=== PATIENT | female | born 1985 | race Caucasian/White ===

== ENCOUNTER 2019-04-23 10:45 | Emergency (ER) | payer OTHER ==
[~2019-04-23] VITALS: Ht 177.8 cm; Wt 86.2 kg
[2019-04-23] MEDS ORDERED: RISP0.5T3 PO (11:04)
[2019-04-23] MEDS ORDERED: VENL150C PO (11:04)
[2019-04-23] MEDS ORDERED: CHOL500016 PO (11:04)
[2019-04-23] MEDS ORDERED: BUSP10TA PO (11:04)
[2019-04-23] MEDS ORDERED: VENL75CA PO (11:04)
[2019-04-23] MEDS ORDERED: PROP40TA PO (11:04)
[2019-04-23] MEDS ORDERED: TOPI25TA52 PO (11:04)
[2019-04-23] MEDS ORDERED: GABA300C18 PO (11:04)
--- NOTE | 2019-04-23 11:05 | PHYS DOC ---
Past Medical History Past Medical History: Anxiety, Depression, Migraines, Seizure, Other Additional Past Medical Histor: fainting, ovarian cyst Past Surgical History: Additional Information: 1 ppd Alcohol Use: None Drug Use: Marijuana Adult General Chief Complaint Chief Complaint: SYNCOPE HPI HPI Patient is a 33 year old female with a history of syncope presents to ED complaining of syncopal episode at work today just prior to arrival. Patient states that she was at work doing labor-intensive job at [employer] and states that she had an episode where she passed out and the ladder fell on her. Complains of pain to left hip and neck. Patient is currently in a c-collar. States she's had previous episodes of syncope in the past. Was thought to be medication related symptom. Patient has a history of seizures and anxiety. States she did not have a seizure today. Denies chest pain, shortness of breath, dizziness, weakness, nausea/vomiting, abdominal pain, diarrhea, dizziness, symptoms prior to fall or use of blood thinners. Review of Systems Review of Systems Constitutional: Denies fever or chills [] Eyes: Denies change in visual acuity, redness, or eye pain [] HENT: Denies nasal congestion or sore throat [] Respiratory: Denies cough or shortness of breath [] Cardiovascular: No additional information not addressed in HPI [] GI: Denies abdominal pain, nausea, vomiting, bloody stools or diarrhea [] : Denies dysuria or hematuria [] Musculoskeletal: Complains of hip and neck pain. Denies back pain. [] Integument: Denies rash or skin lesions [] Neurologic: Denies headache, focal weakness or sensory changes [] All other systems were reviewed and found to be within normal limits, except as documented in this note. Allergies Allergies Allergies Coded Allergies Type Severity Reaction Last Updated Verified morphine Allergy Severe throat swelling, hives 04/23/19 Yes brexpiprazole Adverse Reaction Severe seizures 04/23/19 Yes bupropion Adverse Reaction Severe SI 04/23/19 Yes Uncoded Allergies Type Severity Reaction Last Updated Verified wasp venom Allergy Severe throat swelling 04/23/19 Physical Exam Physical Exam Constitutional: Well developed, well nourished, no acute distress, non-toxic appearance. [] HENT: Normocephalic, atraumatic, bilateral external ears normal, oropharynx moist, no oral exudates, nose normal. [] Eyes: PERRLA, EOMI, conjunctiva normal, no discharge. [] Neck: C-collar in place. supple, no stridor. [] Cardiovascular:Heart rate regular rhythm, no murmur [] Lungs & Thorax: Bilateral breath sounds clear to auscultation [] Abdomen: Bowel sounds normal, soft, no tenderness, no masses, no pulsatile masses. [] Skin: Warm, dry, no erythema, no rash. [] Back: No tenderness, no CVA tenderness. [] Extremities: mild left lateral hip tenderness, no cyanosis, no clubbing, ROM intact, no edema. [] Neurologic: Alert and oriented X 3, normal motor function, normal sensory function, no focal deficits noted. [] Psychologic: Affect normal, judgement normal, mood normal. [] Current Patient Data Vital Signs Vital Signs Date Time Temp Pulse Resp B/P (MAP) Pulse Ox O2 Delivery O2 Flow Rate FiO2 04/23/19 12:46 57 18 119/66 (83) 99 Room Air 04/23/19 10:52 98.6 98.6 Lab Values Laboratory Tests Test 04/23/19 12:05 04/23/19 12:10 04/23/19 12:14 04/23/19 12:55 Urine Collection Type Unknown Urine Color Yellow Urine Clarity Clear Urine pH 6.0 Urine Specific [place] 1.010 Urine Protein Negative mg/dL (NEG-TRACE) Urine Glucose (UA) Negative mg/dL (NEG) Urine Ketones (Stick) Negative mg/dL (NEG) Urine Blood Negative (NEG) Urine Nitrite Negative (NEG) Urine Bilirubin Negative (NEG) Urine Urobilinogen Dipstick 0.2 mg/dL (0.2 mg/dL) Urine Leukocyte Esterase Negative (NEG) Urine RBC 0 /HPF (0-2) Urine WBC 1-4 /HPF (0-4) Urine Squamous Epithelial Cells Mod /LPF Urine Bacteria Mod /HPF (0-FEW) White Blood Count 8.5 x10^3/uL (4.0-11.0) Red Blood Count 4.16 x10^6/uL (3.50-5.40) Hemoglobin 12.7 g/dL (12.0-15.5) Hematocrit 38.0 % (36.0-47.0) Mean Corpuscular Volume 91 fL (79-100) Mean Corpuscular Hemoglobin 31 pg (25-35) Mean Corpuscular Hemoglobin Concent 33 g/dL (31-37) Red Cell Distribution Width 12.8 % (11.5-14.5) Platelet Count 220 x10^3/uL (140-400) Neutrophils (%) (Auto) 53 % (31-73) Lymphocytes (%) (Auto) 40 % (24-48) Monocytes (%) (Auto) 4 % (0-9) Eosinophils (%) (Auto) 2 % (0-3) Basophils (%) (Auto) 1 % (0-3) Neutrophils # (Auto) 4.5 x10^3/uL (1.8-7.7) Lymphocytes # (Auto) 3.3 x10^3/uL (1.0-4.8) Monocytes # (Auto) 0.4 x10^3/uL (0.0-1.1) Eosinophils # (Auto) 0.2 x10^3/uL (0.0-0.7) Basophils # (Auto) 0.1 x10^3/uL (0.0-0.2) POC Urine HCG, Qualitative Hcg negative (Negative) Sodium Level 144 mmol/L (136-145) Potassium Level 4.2 mmol/L (3.5-5.1) Chloride Level 110 mmol/L (98-107) H Carbon Dioxide Level 25 mmol/L (21-32) Anion Gap 9 (6-14) Blood Urea Nitrogen 8 mg/dL (7-20) Creatinine 0.8 mg/dL (0.6-1.0) Estimated GFR (Cockcroft-Gault) 83.7 BUN/Creatinine Ratio 10 (6-20) Glucose Level 85 mg/dL (70-99) Calcium Level 9.1 mg/dL (8.5-10.1) Total Bilirubin 0.2 mg/dL (0.2-1.0) Aspartate Amino Transferase (AST) 15 U/L (15-37) Alanine Aminotransferase (ALT) 19 U/L (14-59) Alkaline Phosphatase 51 U/L (46-116) Troponin I Quantitative < 0.017 ng/mL (0.000-0.055) Total Protein 6.3 g/dL (6.4-8.2) L Albumin 3.6 g/dL (3.4-5.0) Albumin/Globulin Ratio 1.3 (1.0-1.7) Laboratory Tests 04/23/19 12:10 Laboratory Tests 04/23/19 12:55 EKG EKG [] Radiology/Procedures Radiology/Procedures PROCEDURE: PORTABLE CHEST 1V EXAM: AP View of the chest DATE: 04/23/2019 10:55 AM INDICATION: Syncope COMPARISON: No Prior FINDINGS: The heart is not enlarged. Mediastinal and hilar contours are normal. No focal parenchymal airspace opacity. No pleural effusion or pneumothorax. IMPRESSION: 1. No radiographic evidence for acute cardiopulmonary process.[] PROCEDURE: CT HEAD AND CERVICAL SPINE WO STUDY: 1. CT head without contrast 2. CT cervical spine without contrast INDICATION: Fall. Left-sided neck pain. COMPARISON: 06/02/2018; 06/02/2015 TECHNIQUE: Axial CT imaging through the head and cervical spine without the use of intravenous contrast. Sagittal and coronal reformats were obtained. FINDINGS: CT head: No acute intracranial hemorrhage. No mass effect, midline shift or hydrocephalus. Hargrove-white matter differentiation is maintained. The calvarium is intact. Right maxillary sinus retention cyst. CT cervical spine: No acute fracture. Anatomic alignment is maintained. No significant degenerative change. No bony encroachment on the central canal or neural foramina. Unremarkable paraspinous soft tissues and lung apices. IMPRESSION: CT head: 1. No acute intracranial abnormality. CT cervical spine: 1. No acute fracture or traumatic malalignment. PROCEDURE: HIP LEFT 2V WITH PELVIS EXAM: AP pelvis, AP and lateral views of the left hip DATE: 04/23/2019 12:00 AM INDICATION: Syncope, left hip pain COMPARISON: No Prior FINDINGS/ IMPRESSION: 1. No evidence of acute fracture or dislocation. If there is persistent clinical concern for fracture, follow-up radiographs in 10-14 days is recommended. 2. No pubic symphysis or SI joint diastases. 3. Joint spaces are preserved without significant degenerative/proliferative change. 4. Mild prominence of the left femoral head/neck junction may be seen with cam-type POLLY. Course & Med Decision Making Course & Med Decision Making Pertinent Labs and Imaging studies reviewed. (See chart for details) []Discussed lab and imaging findings with patient. Patient's symptoms improved in the ED. States she's feeling much better. Patient able to ambulate without assistance. Patient has a history of syncopal episodes. States same symptoms have happened many times in the past. Discussed follow-up with PCP outpatient this week. Provided contact information/education. Discussed reasons to return to the ED. Patient understands and agrees with plan. Dragon Disclaimer Dragon Disclaimer This electronic medical record was generated, in whole or in part, using a voice recognition dictation system. Departure Departure Impression: Primary Impression: Pre-syncope Additional Impressions: Head injury Hip sprain Disposition: 01 HOME, SELF-CARE Condition: IMPROVED Referrals: YAEL LEE MD Patient Instructions: Cervical Sprain, Head Injury, Adult, Hip Injury, Syncope, [id number] Problem Qualifiers STEVEN HIGUERA Apr 23, 2019 11:05
--- NOTE | 2019-04-23 11:28 | EKG ---
[facility] [address] [place] [id number] Test Date: 2019-04-23 Test Time: 11:21:23 Pat Name: HERMAN BECK Department: Room: Gender: F Plant Operator Helper: : [id number] Requested By: STEVEN HIGUERA Order Number: [id number] Reading MD: Measurements Intervals [place] Rate: 48 P: 30 SD: 150 QRS: 56 QRSD: 86 T: 42 QT: 426 QTc: 383 Interpretive Statements SINUS BRADYCARDIA OTHERWISE NORMAL ECG No previous ECG available for comparison
--- NOTE | 2019-04-23 11:35 | RAD ---
EXAM: AP View of the chest DATE: 04/23/2019 10:55 AM INDICATION: Syncope COMPARISON: No Prior FINDINGS: The heart is not enlarged. Mediastinal and hilar contours are normal. No focal parenchymal airspace opacity. No pleural effusion or pneumothorax. IMPRESSION: 1. No radiographic evidence for acute cardiopulmonary process. Electronically signed by: Michael Beltrán MD (04/23/2019 11:32 AM) [facility]
--- NOTE | 2019-04-23 11:36 | RAD ---
EXAM: AP pelvis, AP and lateral views of the left hip DATE: 04/23/2019 12:00 AM INDICATION: Syncope, left hip pain COMPARISON: No Prior FINDINGS/ IMPRESSION: 1. No evidence of acute fracture or dislocation. If there is persistent clinical concern for fracture, follow-up radiographs in 10-14 days is recommended. 2. No pubic symphysis or SI joint diastases. 3. Joint spaces are preserved without significant degenerative/proliferative change. 4. Mild prominence of the left femoral head/neck junction may be seen with cam-type POLLY. Electronically signed by: Michael Beltrán MD (04/23/2019 11:33 AM) [facility]
[2019-04-23 12:28] LABS: BILIRUBIN,URINE NEGATIVE (NEG); CLARITY,URINE CLEAR; COLOR,URINE YELLOW; NITRITE,URINE NEGATIVE (NEG); PROTEIN,URINE NEGATIVE (NEG-TRACE); UROBILINOGEN,URINE 0.2 mg/dL (0.2 mg/dL)
[2019-04-23 12:33] LABS: BASO # 0.1 x10^3/uL (0.0-0.2); BASO % 1 % (0-3); EOS # 0.2 x10^3/uL (0.0-0.7); EOS % 2 % (0-3); HEMOGLOBIN 12.7 g/dL (12.0-15.5); LYMPH # 3.3 x10^3/uL (1.0-4.8); LYMPH % 40 % (24-48); MEAN CORPUSCULAR HEMOGLOBIN 31 pg (25-35); MEAN CORPUSCULAR HGB CONC 33 g/dL (31-37); MEAN CORPUSCULAR VOLUME 91 fL (79-100); MONO # 0.4 x10^3/uL (0.0-1.1); MONO % 4 % (0-9); NEUT # 4.5 x10^3/uL (1.8-7.7); NEUT % 53 % (31-73); PLATELET COUNT 220 x10^3/uL (140-400); RED BLOOD COUNT 4.16 x10^6/uL (3.50-5.40); RED CELL DISTRIBUTION WIDTH 12.8 % (11.5-14.5); WHITE BLOOD COUNT 8.5 x10^3/uL (4.0-11.0)
[2019-04-23 12:44] LABS: SQUAMOUS EPITHELIAL CELL,UR MOD /LPF
[2019-04-23 12:45] LABS: BACTERIA,URINE MOD /HPF (0-FEW); RBC,URINE 0 /HPF (0-2)
--- NOTE | 2019-04-23 13:00 | RAD ---
STUDY: 1. CT head without contrast 2. CT cervical spine without contrast INDICATION: Fall. Left-sided neck pain. COMPARISON: 06/02/2018; 06/02/2015 TECHNIQUE: Axial CT imaging through the head and cervical spine without the use of intravenous contrast. Sagittal and coronal reformats were obtained. FINDINGS: CT head: No acute intracranial hemorrhage. No mass effect, midline shift or hydrocephalus. Hargrove-white matter differentiation is maintained. The calvarium is intact. Right maxillary sinus retention cyst. CT cervical spine: No acute fracture. Anatomic alignment is maintained. No significant degenerative change. No bony encroachment on the central canal or neural foramina. Unremarkable paraspinous soft tissues and lung apices. IMPRESSION: CT head: 1. No acute intracranial abnormality. CT cervical spine: 1. No acute fracture or traumatic malalignment. Electronically signed by: CHARLES HARRIS MD (04/23/2019 12:58 PM) [id number]
[2019-04-23 13:16] LABS: CALCIUM 9.1 mg/dL (8.5-10.1); CREATININE 0.8 mg/dL (0.6-1.0); GFR 83.7; POTASSIUM 4.2 mmol/L (3.5-5.1)
[2019-04-23 13:24] LABS: ALBUMIN 3.6 g/dL (3.4-5.0); ALBUMIN/GLOBULIN RATIO 1.3 (1.0-1.7); TOTAL BILIRUBIN 0.2 mg/dL (0.2-1.0); TOTAL PROTEIN 6.3 g/dL (6.4-8.2)
[2019-04-23 13:30] VITALS: BP 146/83
== END 2019-04-23 14:15 | disposition home or self-care (01) ==
LOC: ER 10:45
DX: S73.192A Other sprain of left hip, initial encounter (principal); S09.8XXA Other specified injuries of head, initial encounter; R55 Syncope and collapse; M54.2 Cervicalgia; F41.9 Anxiety disorder, unspecified; F32.9 Major depressive disorder, single episode, unspecified; G43.909 Migraine, unspecified, not intractable, without status migrainosus; F17.200 Nicotine dependence, unspecified, uncomplicated; Z98.890 Other specified postprocedural states; Z88.5 Allergy status to narcotic agent; Z88.8 Allergy status to other drugs, medicaments and biological substances; Z91.030 Bee allergy status
CPT/HCPCS: 36415; 70450; 71045; 72125; 73502; 80053; 81001; 81025; 84484; 85025; 93005; 99285-25